=== PATIENT | female | born 1960 | race Caucasian/White ===

== ENCOUNTER → 2017-01-29 | Outpatient (CLI) | payer BC ==
[~2017-01-29] MED LIST: AMOX500C3 PO; CALC600T9 PO; DOXY100C76 PO; FEXO1TAB49 PO; GLUC1TAB44 PO; MELO7.5T5 PO; MULT-580 PO; MULTTAB58 PO; OMEGCAP2 PO; OMEP20TA14 PO; OXYC-57 PO; PROB1CAP54 PO; RIZA10TA18 PO; ZEAX5POW PO; ZEAXANTHIN
[2017-01-29 09:04] LABS: CHOLESTEROL/HDL RATIO 2.2
== END | disposition home or self-care (01) ==
LOC: C.LAB 07:29
DX: Z13.220 Encounter for screening for lipoid disorders (principal)

== ENCOUNTER → 2017-02-03 | Outpatient (CLI) | payer BC | END | disposition home or self-care (01) | LOC: C.PATH 13:54 | PROVIDERS: ATTEND Obstetrics & Gynecology | DX: N95.0 Postmenopausal bleeding (principal); N85.8 Other specified noninflammatory disorders of uterus ==

== ENCOUNTER → 2017-02-28 | Outpatient (CLI) | payer BC ==
[~2017-02-28] MED LIST changes: -AMOX500C3 PO; -MELO7.5T5 PO; -OMEGCAP2 PO; -OXYC-57 PO; -ZEAXANTHIN
--- NOTE | 2017-02-28 13:29 | MAMMOGRAPHY REPORT ---
ULTRASOUND OF BOTH BREASTS: 02/28/2017 CLINICAL HISTORY: 56-year-old woman presents for follow-up of probable complicated cysts identified i n the 12:00 and 1:00 axes of the right breast on previous ultrasound. Patient in this early presente d with bilateral palpable lumps in the 12:00 right breast and 3 lumps in the left breast which she st ill feels today. COMPARISON: Comparison is made to exams dated: 08/24/2016 ultrasound, 08/24/2016 mammogram, 6 ultrasound, 12/14/2015 mammogram, 07/21/2015 ultrasound, and 07/21/2015 mammogram - [facility]. FINDINGS: Targeted ultrasound was performed in both breasts with particular attention to a palpable lump in the 1:00 right breast, 12:00, 1:00 and 5:00 left breast. In the 1:00 right breast, 2 cm from the nipple in an area of palpable concern there is a rounded circumscribed mixed anechoic and hypoec hoic cystic-appearing mass measuring 5.6 x 5.1 x 6.3 mm. When comparing to the prior ultrasound this cystic appearing mass appears the same size visually, and it previously measured 5.4 x 4.6 x 6.3 mm. In the 12:00 right breast, 2 cm from the nipple, there is an oval parallel circumscribed mixed anec hoic and isoechoic cystic-appearing mass that measures 8.1 x 4.5 x 12.3 mm, previously measured 8.0 x 4.4 x 10.7 mm, and is also considered stable. Within the left 12:00 periareolar breast in an area o f palpable lump pointed out by the patient, there is a round anechoic benign simple cyst measuring 3. 5 x 2.7 x 4.9 mm. 2 abutting cysts versus a bilobed anechoic simple cyst in the 1:00 left breast, 4 cm from the nipple, measuring 8.8 x 3.8 x 7.0 mm in conglomerate, and another round nearly anechoic b enign simple cyst in an area of palpable concern in the 5:00 left breast, 2 cm from the nipple, measu ring 3.7 x 2.6 x 3.5 mm. This has decreased in size since the prior ultrasound. No suspicious solid mass is identified bilaterally. A few other scattered smaller anechoic benign cysts are seen in the left breast in real-time scanning. When compared to more remote ultrasounds including the 12/14/2015 and 07/21/2015 exams, nearly all of the simple cyst in the left breast are stable. A probable complicated cyst in the 2:30 to 3:00 axis is not currently identified. IMPRESSION: ACR-BI-RADS CATEGORY 3: PROBABLY BENIGN - FOLLOW-UP RECOMMENDED 1. There are multiple cystic-appearing masses scattered in both breasts on ultrasound, most compatib le with benign fibrocystic changes. 2 probable complicated cysts located in the 12:00 and 1:00 axes of the right breast are unchanged in size and appearance comparing to the 08/24/2016 ultrasound, and are most likely benign. However, given the complicated nature, another six-month short interval foll ow-up targeted ultrasound is recommended to ensure longer stability. Annual bilateral screening mamm ography will also be due at that time. 2. Many of the patient's palpable lumps correlate with simple cysts, with the exception of the mildl y complicated cyst in the 1:00 right breast. Continued clinical follow-up is also recommended. These results and recommendations were discussed with the patient at the time of the exam. Silke Linder M.D. ay/:02/28/2017 10:00:23 Cataract Lens Generator: Mago MENEZES)(Edson), [facility] letter sent: Follow Up Recommended 3 BI-RADS Code: ACR-BI-RADS Category 3: Probably Benign
== END | disposition home or self-care (01) ==
LOC: C.MAMM 07:50
PROVIDERS: ATTEND Obstetrics & Gynecology
DX: N63 Unspecified lump in breast (principal)

== ENCOUNTER 2017-03-03 09:31 | Day surgery (SDC) | payer BC ==
[2017-02-15 09:41] VITALS: BMI 21.0
[2017-03-01 10:13] LABS: BASO % 0.2 %; BASO ABS # 0.01 K/uL (0-0.2); COMPLETE YES; EOS % 3.8 %; HEMATOCRIT 40.6 % (37-47); LYMPH % 42.7 %; LYMPH ABS # 2.39 K/uL (1.2-3.4); MEAN CELL VOLUME 94.4 fL (80-100); MEAN CORPUSCULAR HEMOGLOBIN 32.6 pg (25-34); MEAN CORPUSCULAR HGB CONC 34.5 g/dl (32-36); MEAN PLATELET VOLUME 10.7 fL (7.4-10.4); MONO % 8.6 %; NEUT % 44.7 %; PLATELET COUNT 173 K/uL (130-400)
[~2017-03-03] VITALS: Ht 162.6 cm; Wt 56.8 kg
[~2017-03-03 09:31] MED LIST changes: -DOXY100C76 PO; +LACTATED RINGER'S 1000ML 1,000 ML IV SCH
[2017-03-03] MEDS ORDERED: DOXY100C76 PO (09:51)
[2017-03-03 09:54] VITALS: BP 115/77; PULSE 55; TEMP 36.9; O2SAT 97; BMI 21.0
[2017-03-03 10:11] VITALS: BP 115/77; TEMP 36.9; O2SAT 97; Ht 162.6 cm; Wt 56.8 kg
[2017-03-03] MEDS ORDERED: MIDAZOLAM HCL 1 MG/ML 2ML VIAL ONE (11:26)
[2017-03-03] MEDS ORDERED: FENTANYL CITRATE INJ 50 MCG/1 ML 2 ML VIAL ONE ×2 (11:26→12:42)
[2017-03-03] MEDS ORDERED: DEXAMETHASONE SOD INJ 4 MG/ML VIAL ONE (11:27)
[2017-03-03] MEDS ORDERED: PROPOFOL IV EMULSION 10 MG/ML 20 ML VIAL IV ONE (11:27)
[2017-03-03] MEDS ORDERED: ONDANSETRON INJ 2 MG/ML 2 ML VIAL ONE (11:27)
[2017-03-03] MEDS ORDERED: LIDOCAINE HCL 2% 2 ML VIAL (20MG/ML) ONE (11:27)
--- NOTE | 2017-03-03 11:35 | History & Physical Bridge Note ---
H&P Re-Evaluation Bridge Note: I have examined the patient, reviewed the History & Physical and in the interval since the performance of the History & Physical I have noted the following changes of clinical significance: No changes noted
[2017-03-03] MEDS ORDERED: KETOROLAC TROMETHAMINE 30 MG/ML VIAL ONE (12:23)
[2017-03-03] MEDS ORDERED: SILVER NITR/POTASSIUM NITRATE 10 APPLICATOR PACK ONE (12:47)
[2017-03-03] MEDS ORDERED: SODIUM CHLORIDE 0.9% 1000ML 1,000 ML IV SCH (13:03)
--- NOTE | 2017-03-03 13:03 | [facility] Operative Report ---
Operative Report Operative Date Mar 03, 2017. Pre-Operative Diagnosis Postmenopausal bleeding, Abnormal u/s findings. h/o uterine fibroids Post-Operative Diagnosis same, endometrial polyp Procedure(s) Performed 1. Dilatation and curettage 2. Hysteroscopy 3. Endometrial polypectomy Surgeon Tony Respooler Surgeon(s) none Estimated Blood Loss 0 cc Findings Uterus extremely retroverted. Sounds to about 7 cm. Cervix at internal os very tight. Normal right tubal ostia seen and polyp emanating from the left tubal ostia area obscuring the ostia noted. Right mid body anteriorly partially submucosal fibroid suspected. Attempts made to use myosure however myosure hysteroscope was difficult to insert. This was mostly attempted to consider shaving fibroid. Hysteroscopic saline fluid deficit suspected to be 300 cc. Of note during the transition from 1 hysteroscope to the next the fluid became dislodged from the hysteroscope with estimated spell on the floor. After polypectomy uterus with a smooth cavity left tubal ostia now seen small indent the suspected partially submucosal fibroid still seen. Fluids 700 Specimens Endometrial curettings and polyp Drains none Anesthesia Gen. Complication(s) None Disposition Recovery Room / PACU Indications 56-year-old with postmenopausal bleeding with ultrasound finding suspicious for lesion and saline hysterosonography also suspicious for possible polyp. Office endometrial biopsy benign. Recommendation for hysteroscopy and removal of polyp. Patient agreed. Description of Procedure Patient taken to the operating room and identified. After adequate general anesthesia was obtained she was placed in the dorsal lithotomy position and prepped and draped in the usual sterile fashion. Attention was turned to the patient's vagina where the bladder was drained for clear yellow urine. Weighted speculum and anterior retractor were placed to visualize the cervix which was grasped on its anterior lip using an Allis clamp at first. The cervix was sequentially dilated using Ema dilators to 23. A diagnostic hysteroscope primed with saline media was gently placed into the cervical os into the uterine cavity and the cavity was inspected with the findings as noted above. The angle of the camera was quite steep. Given the suspected slightly submucosal fibroid I attempted to use the mild sure hysteroscope that even with further dilation it was difficult to introduce I suspect due to the steep retroversion of the uterus and the tight internal os. For this reason instead a polyp forcep as well as serrated curette were used to clear the uterus of its contents and all specimens were sent. It is significant to note that the remainder of the cavity was very bland-appearing. This included the lining that was overlying the slight indent of likely submucosal fibroid. The saline hysteroscopic fluid deficit was estimated as noted. A cavity was able to be well inspected with normal distention and no evidence of remaining polyp. This point the procedure was terminated. Of note a tenaculum was later used to stabilize the cervix due to the difficult dilation and introduction of instruments and therefore slight bleeding at the cervix was cauterized with silver nitrate for excellent hemostasis. Patient was returned to the supine position she was awoken from her anesthesia and transported to the recovery room in stable condition. All sponge lap and needle counts were correct 2. I attest to the content of the Intraoperative Record and any orders documented therein. Any exceptions are noted below.
--- NOTE | 2017-03-03 13:07 | Discharge Instructions ---
Discharge Instructions Date of Service Mar 03, 2017. Admission Reason for Admission: Post Menopausal Bleeding Discharge Discharge Diagnosis / Problem: after surgery Discharge Goals Goal(s): Routine recovery after surgery Activity Recommendations Activity Limitations: as noted below . Instructions / Follow-Up Instructions / Follow-Up ACTIVITY RECOMMENDATIONS: * Avoid tampons, douching, hot tubs, pools, and intercourse until bleeding has stopped. * May shower as usual. * No strenuous activity for 24-48 hours. After 24-48 hours, you may do anything you feel like doing (driving and sports are okay). SPECIAL CARE INSTRUCTIONS: Special Diet: * Mild nausea may occur in the immediate post-operative period. * Take clear liquids such as tea, cola or bouillon until all nausea has subsided; you may then resume your normal diet. Special Care: * Light bleeding and vaginal spotting can last from a few days to 3-4 weeks. Call your doctor if bleeding becomes heavier than the heaviest part of your period. * Check your temperature twice a day for one week. If it goes above 100.4 degrees Fahrenheit (38.0 Celsius), notify your doctor. * Call your doctor's office for an appointment for 2-4 weeks after your surgery. FOLLOW-UP VISIT: Call your doctor's office for an appointment for 2-4 weeks after your surgery. Current Hospital Diet Patient's current hospital diet: Discharge Diet Recommended Diet: Regular Diet Procedures Procedures Performed: Dilatation and currettage, hysteroscopy, polypectomy. Pending Studies Studies pending at discharge: yes List of pending studies: pathology Laboratory Results Lipid Panel Test 01/29/17 07:50 Range/Units Triglycerides Level 56 0-150 mg/dl Cholesterol Level 184 0-200 mg/dl HDL Cholesterol 83 mg/dl Cholesterol/HDL Ratio 2.2 LDL Cholesterol, Calculated 90 mg/dl Medical Emergencies . Who to Call and When: Medical Emergencies: If at any time you feel your situation is an emergency, please call 911 immediately. . Non-Emergent Contact Non-Emergency issues call your: Care Transitions Nurse . . "Provider Documentation" section prepared by Florina Jimenez. . VTE Core Measure Inpt VTE Proph given/why not?: Treatment not indicated
[2017-03-03] MEDS ORDERED: HYDROmorphone INJ 1 MG/ML SYR IV PRN (13:15)
[2017-03-03] MEDS ORDERED: ATROPINE SULFATE 0.1 MG/ML 5ML SYR IV PRN (13:15)
[2017-03-03] MEDS ORDERED: EpHEDrine SULFATE INJ 50 MG/ML AMP IV PRN (13:15)
[2017-03-03] MEDS ORDERED: IBUPROFEN 600 MG TAB PO PRN (13:15)
[2017-03-03] MEDS ORDERED: KETOROLAC TROMETHAMINE 30 MG/ML VIAL IV. PRN (13:15)
[2017-03-03] MEDS ORDERED: ONDANSETRON INJ 2 MG/ML 2 ML VIAL IV PRN ×2 (13:15)
[2017-03-03] MEDS ORDERED: MEPERIDINE HCL 25 MG/ML CARP IV PRN (13:15)
[2017-03-03] MEDS ORDERED: OXYCODONE/ACETAMINOPHEN 5-325 TAB PO PRN ×2 (13:15)
[2017-03-03] MEDS ORDERED: LABETALOL HCL IV 5 MG/ML 20ML IV PRN (13:15)
[2017-03-03] MEDS ORDERED: FENTANYL CITRATE INJ 50 MCG/1 ML 2 ML VIAL IV PRN (13:15)
[2017-03-03 13:45] VITALS: BP 110/75; PULSE 56; TEMP 36.6; O2SAT 97
[2017-03-03 14:15] VITALS: BP 112/67; PULSE 60; TEMP 36.6; O2SAT 98
[2017-03-03 14:45] VITALS: BP 115/60; PULSE 58; TEMP 36.6; O2SAT 99
--- NOTE | 2017-03-03 15:13 | Anesthesiology Progress Note ---
Anesthesia Post Op Note Date & Time Mar 03, 2017 at 15:13 Vital Signs Pain Intensity: 0 Vital Signs Past 12 Hours Date Time Temp Pulse Resp B/P (MAP) Pulse Ox O2 Delivery O2 Flow Rate FiO2 03/03/17 14:45 36.6 58 18 115/60 99 Room Air 03/03/17 14:15 36.6 60 18 112/67 98 Room Air 03/03/17 13:45 36.6 56 18 110/75 97 Room Air 03/03/17 13:35 36.6 59 18 120/79 99 Room Air 03/03/17 13:25 54 16 127/73 100 Room Air 03/03/17 13:15 55 20 119/79 100 Mask 10 03/03/17 13:05 50 9 100/62 (70) 100 Mask 10 03/03/17 12:59 36.5 49 8 90/58 (63) 99 Mask 10 03/03/17 10:11 36.9 16 115/77 (90) 97 Room Air 03/03/17 09:54 36.9 55 16 115/77 (90) 97 Room Air Notes Mental Status: alert / awake / arousable, participated in evaluation Pt Amnestic to Procedure: Yes Nausea / Vomiting: adequately controlled Pain: adequately controlled Airway Patency, RR, SpO2: stable & adequate BP & HR: stable & adequate Hydration State: stable & adequate Anesthetic Complications: no major complications apparent
== END 2017-03-03 14:52 | disposition home or self-care (01) ==
LOC: C.ACU 09:31
PROVIDERS: ATTEND Obstetrics & Gynecology
DX: N95.0 Postmenopausal bleeding (principal); R93.5 Abnormal findings on diagnostic imaging of other abdominal regions, including retroperitoneum; N84.0 Polyp of corpus uteri; J45.909 Unspecified asthma, uncomplicated; Z98.890 Other specified postprocedural states; Z79.899 Other long term (current) drug therapy; Z68.21 Body mass index [BMI] 21.0-21.9, adult; Z80.3 Family history of malignant neoplasm of breast; Z80.49 Family history of malignant neoplasm of other genital organs

== ENCOUNTER 2017-08-04 05:35 | Observation (INO) | payer BC ==
[2017-07-20 14:14] VITALS: Ht 162.6 cm; Wt 57.0 kg
--- NOTE | 2017-07-20 14:51 | PAT Medication Instructions ---
Service Date Jul 20, 2017. Current Home Medication List Amoxicillin (Amoxil), Unknown Dose PO TID Calcium Carbonate-Vitamin D (Calcium + D), 1 TAB PO QAM Fexofenadine Hcl (Eri Allergy), 1 TAB PO QAM PRN for Seasonal Allergies Zwuwsqrolvg-Jbhwddmzuih-Evnwhn (Glucosamine Chondroitin J), 1 TAB PO HS Meloxicam (Mobic), Unknown Dose PO HS Multiple Vitamin (Multivitamin), 1 TAB PO HS Multiple Vitamins W/ Minerals (Hair/Skin/Nails), 1 TAB PO QAM Omeprazole Magnesium (Prilosec Otc), 20 MG PO QAM PRN for HEARTBURN Probiotic Product (Acidophilus), 1 CAP PO BID Rizatriptan Benzoate (Maxalt), 10 MG PO UD PRN for Migraine [Zeaxanthin (Bulk)], Unknown Dose Medication Instructions For Your Scheduled Surgery - Hold the following medications per surgeon's instructions: Meloxicam (Mobic), Unknown Dose PO HS - Hold the following medications 2 week prior to surgery: Tnkodjccksi-Pbqytrqjmlu-Uyudyq (Glucosamine Chondroitin J), 1 TAB PO HS - Hold the following medications 1 week prior to surgery: [Zeaxanthin (Bulk)], Unknown Dose (EYE VITAMIN) - Hold the following medications the morning of surgery: Calcium Carbonate-Vitamin D (Calcium + D), 1 TAB PO QAM Fexofenadine Hcl (Eri Allergy), 1 TAB PO QAM PRN for Seasonal Allergies Multiple Vitamins W/ Minerals (Hair/Skin/Nails), 1 TAB PO QAM Probiotic Product (Acidophilus), 1 CAP PO BID - Take the following medications the morning of surgery with a sip of water OTHERWISE NOTHING TO EAT OR DRINK AFTER MIDNIGHT: Rizatriptan Benzoate (Maxalt), 10 MG PO UD PRN for Migraine Omeprazole Magnesium (Prilosec Otc), 20 MG PO QAM PRN for HEARTBURN - Take the following medications as scheduled the night before surgery: Multiple Vitamin (Multivitamin), 1 TAB PO HS Rizatriptan Benzoate (Maxalt), 10 MG PO UD PRN for Migraine Probiotic Product (Acidophilus), 1 CAP PO BID If you have any questions please call us at [phone] or [phone] or [phone]
[2017-07-20 15:13] LABS: BASO % 0.3 %; BASO ABS # 0.02 K/uL (0-0.2); COMPLETE YES; EOS % 5.3 %; HEMATOCRIT 40.2 % (37-47); IG% 0.1 %; LYMPH % 41.7 %; LYMPH ABS # 2.81 K/uL (1.2-3.4); MEAN CELL VOLUME 94.4 fL (80-100); MEAN CORPUSCULAR HEMOGLOBIN 31.5 pg (25-34); MEAN CORPUSCULAR HGB CONC 33.3 g/dl (32-36); MEAN PLATELET VOLUME 10.5 fL (7.4-10.4); MONO % 5.5 %; NEUT % 47.1 %; PLATELET COUNT 183 K/uL (130-400); RED BLOOD COUNT 4.26 M/uL (4.2-5.4); WHITE BLOOD COUNT 6.74 K/uL (4.8-10.8)
[2017-08-04] VITALS (7 sets, daily range): BP systolic 93–118; BP diastolic 47–76; PULSE 52–68; TEMP 36.4–36.8; O2SAT 97–100
[~2017-08-04] VITALS: Ht 162.6 cm; Wt 57.0 kg
[~2017-08-04 05:35] MED LIST changes: +AMOX500C3 PO; -LACTATED RINGER'S 1000ML 1,000 ML IV SCH; +MELO7.5T5 PO; -ZEAX5POW PO; +ZEAXANTHIN
[2017-08-04] MEDS ORDERED: LACTATED RINGER'S 1000ML 1,000 ML IV SCH ×3 (06:00→09:57)
[2017-08-04] MEDS ORDERED: CEFAZOLIN 2000MG IV PUSH 10 ML IV SCH (06:00)
[2017-08-04] MEDS ORDERED: PROPOFOL IV EMULSION 10 MG/ML 20 ML VIAL IV ONE (06:49)
[2017-08-04] MEDS ORDERED: DEXAMETHASONE SOD INJ 4 MG/ML VIAL ONE (06:49)
[2017-08-04] MEDS ORDERED: LIDOCAINE HCL 2% 2 ML VIAL (20MG/ML) ONE (06:49)
[2017-08-04] MEDS ORDERED: FENTANYL CITRATE INJ 50 MCG/1 ML 2 ML VIAL ONE ×2 (06:49→09:27)
[2017-08-04] MEDS ORDERED: ONDANSETRON INJ 2 MG/ML 2 ML VIAL ONE ×2 (06:49→09:27)
[2017-08-04] MEDS ORDERED: MIDAZOLAM HCL 1 MG/ML 2ML VIAL ONE (06:50)
[2017-08-04] MEDS ORDERED: HYDROmorphone INJ 2 MG/ML SYR/VIAL ONE (06:50)
[2017-08-04] MEDS ORDERED: METHYLENE BLUE 0.5% 10 ML VIAL ONE (07:03)
[2017-08-04] MEDS ORDERED: BUPIVACAINE 0.5 % 5 MG/1 ML MPF 30ML VIAL ONE (07:03)
[2017-08-04] MEDS ORDERED: ATROPINE SULFATE 0.1 MG/ML 5ML SYR IV PRN (09:00)
[2017-08-04] MEDS ORDERED: LABETALOL HCL IV 5 MG/ML 20ML IV PRN (09:00)
[2017-08-04] MEDS ORDERED: ONDANSETRON INJ 2 MG/ML 2 ML VIAL IV PRN ×2 (09:00→10:00)
[2017-08-04] MEDS ORDERED: FENTANYL CITRATE INJ 50 MCG/1 ML 2 ML VIAL IV PRN (09:00)
[2017-08-04] MEDS ORDERED: EpHEDrine SULFATE INJ 50 MG/ML AMP IV PRN (09:00)
[2017-08-04] MEDS ORDERED: HYDROmorphone INJ 1 MG/ML SYR IV PRN (09:00)
[2017-08-04] MEDS ORDERED: MEPERIDINE HCL 25 MG/ML CARP IV PRN (09:00)
[2017-08-04] MEDS ORDERED: GLYCOPYRROLATE INJ 0.2 MG/ML VIAL ONE (09:27)
[2017-08-04] MEDS ORDERED: KETOROLAC TROMETHAMINE 30 MG/ML VIAL ONE (09:27)
[2017-08-04] MEDS ORDERED: ROCURONIUM BROMIDE 10 MG/ML 5 ML VIAL IV ONE (09:27)
[2017-08-04] MEDS ORDERED: NEOSTIGMINE METHYLSULFATE 5 MG/5 ML SYR ONE (09:27)
[2017-08-04] MEDS ORDERED: NALOXONE HCL 0.4 MG/1 ML VIAL/CARP ONE (09:51)
--- NOTE | 2017-08-04 09:57 | [facility] Operative Report ---
Operative Report Operative Date Aug 04, 2017. Pre-Operative Diagnosis 1.Postmenopausal bleeding 2. Submucous leiomyoma of uterus Post-Operative Diagnosis 1.Postmenopausal bleeding 2. Submucous leiomyoma of uterus Procedure(s) Performed Total Laparoscopic Hysterectomy, bilateral salpingectomies, cystoscopy, robotic assistance Surgeon Dr. Florina Jimenez Dynamic Etching Processor Surgeon(s) Dr. Isha Whitt Estimated Blood Loss 50 mL Findings uterus difficult to gain entry with vcare device, presumably due to submucosal fibroid. uterus size top normal. subserosal fibroids noted small x 2 on posterior wall. atrophic ovaries bilaterally. normal fallopian tubes. Normal liver edge and gallbladder. Cystoscopy findings with normal bladder filling, normal dome and normal bilateral ureteral jets. Fluids 1000 Specimens Permanent specimens A: Uterus, cervix, and bilateral fallopian tubes Drains brooks Anesthesia general Complication(s) None Disposition Recovery Room / PACU Indications 57-year-old with a history of persistent postmenopausal bleeding despite prior D &C hysteroscopy and resection of submucosal fibroid. Due to the persistence of the bleeding decision was made to proceed with definitive hysterectomy. Description of Procedure Patient taken to the operating room and identified. After adequate general anesthesia was obtained she was placed in the dorsolithotomy position and prepped and draped in the usual sterile fashion. Attention was turned to the patient's vagina where a Brooks catheter was placed in the usual fashion. A weighted speculum and anterior retractor were used to visualize the cervix which was grasped on its anterior lip with an Allis clamp. A suture of 0 Vicryl in interrupted fashion was placed at the 3 o'clock position. The medium V care cup was seemingly too large and therefore the small V care cup was obtained. The cervix was attempted to be dilated however this was difficult. For that reason the decision was made to gain entry abdominally in order to watch laparoscopically during dilation and placement of the V care cup. Attention was then returned to the abdomen. A knife was used to create create a infra umbilical skin incision. The Veress needle was placed intraperitoneally with an opening pressure of 3 mmHg. A CO2 pneumoperitoneum was created. The 12 mm trocar was placed under direct visualization using the optical trocar device. Patient was placed in Trendelenburg. A left da Lor trocar site was created by first creating skin incision and then racing under direct visualization a da Lor trocar. The bowel was teased away from the pelvis using a blunt probe. The surgeon returned to the vagina where the weighted speculum was replaced. The Allis clamp was replaced on the cervix for traction. The cervix was then sequentially dilated with direct visualization via the laparoscope. The V care manipulator was gently placed through the cervical os into the uterine cavity and the balloon was inflated. The cup was then tied down. The blue stabilizing cup was unable to be passed through a very narrow introitus and therefore was left outside of the introitus and stabilized. Attention was returned to the abdomen. A right da Lor trocar site was then placed under direct visualization after creating a skin incision. The laparoscope was then removed. The da Lor robot was brought to the patient's bedside. The appropriate instrument arms were attached to the appropriate trocars. The camera was introduced. The monopolar bronwyn was brought through instrument arm #1 and the bipolar cautery was brought through instrument arm #2. The surgeon then went to the console. The ureters were seen coursing well below the planned operative sites. The uterus was manipulated to reveal the right infundibulopelvic ligament , fallopian tube, round ligament complex. The fallopian tube was dissected away from it mesosalpinx. The utero-ovarian ligament and round ligament complex was sequentially coagulated and then transected. The anterior and posterior leaves of the broad ligament were also dissected. The bladder was pushed well away from the planned operative sites. The uterine artery pedicle was cauterized on the right side. Attention was then turned to the left fallopian tube and utero- ovarian ligament, round ligament complex. The fallopian tube again was from the mesosalpinx and the utero-ovarian ligament and round ligament complexes were coagulated and transected. The anterior and posterior leaves of the broad ligament were opened up into creating a bladder flap completely anteriorly and pushing the bladder well away from from the planned operative site. The uterine artery pedicles were both coagulated and transected on the left side. The cardinal ligament attachments were further coagulated and transected once the bladder was cleared well away from the planned operative site. This required some pressure on the V care cup. Attention was returned to the right uterine artery pedicle was which was then re-coagulated and transected as well as the cardinal ligament attachments. Then colpotomy site was completely freed and then was entered into using the monopolar bronwyn. The cervix was carved away from the vagina in circumferential fashion. The specimen was brought out through the vagina. A sponge was placed in the vagina to maintain pneumoperitoneum. The 2-0 V LOC 90 suture was passed vaginally. The #1 instrument arm was exchanged with a large needle delivery route driver. The cuff was closed in a running fashion in the usual fashion using the V LOC 90 suture material and back stitches were placed. Small bleeding sites to the right of the cuff were cauterized. The suture material was cut and the needle was removed from the abdomen. The pelvis was irrigated with no evidence of active bleeding sites. Cystoscopy took place with the findings as noted above. The CO2 pneumoperitoneum was released and no active bleeding sites were noted. The procedure was terminated. The robot was undocked and moved away from the patient 's bedside. A new Brooks catheter had been placed. The CO2 gas was allowed to escape the patient's abdomen and the trocars removed. The infraumbilical trocar site fascia was reapproximated using 0 Vicryl in an interrupted fashion. All the sites were injected with Marcaine and then stitched in a subcuticular fashion using 4-0 Vicryl. They were dressed with Dermabond. The patient was returned to the supine position and awoken from her anesthesia and transported to the recovery room in stable condition. All sponge lap and needle counts were correct 2. I attest to the content of the Intraoperative Record and any orders documented therein. Any exceptions are noted below.
[2017-08-04] MEDS ORDERED: IBUPROFEN 600 MG TAB PO PRN (10:00)
[2017-08-04] MEDS ORDERED: OXYCODONE/ACETAMINOPHEN 5-325 TAB PO PRN ×2 (10:00)
[2017-08-04] MEDS ORDERED: ACETAMINOPHEN 325 MG TAB PO PRN (10:00)
[2017-08-04] MEDS ORDERED: KETOROLAC TROMETHAMINE 30 MG/ML VIAL IV. PRN (10:00)
--- NOTE | 2017-08-04 10:51 | Anesthesiology Progress Note ---
Anesthesia Post Op Note Date & Time Aug 04, 2017 at 10:50 Vital Signs Pain Intensity: 0 Vital Signs Past 12 Hours Date Time Temp Pulse Resp B/P (MAP) Pulse Ox O2 Delivery O2 Flow Rate FiO2 08/04/17 10:30 36.3 54 16 97/63 (75) 99 Nasal Cannula 2 08/04/17 10:20 60 14 98/64 (74) 98 Nasal Cannula 2 08/04/17 10:10 65 20 96/70 (78) 99 Oxymask 10 Mask 08/04/17 10:00 65 20 119/76 99 Mask 10 08/04/17 09:50 49 19 95/64 (76) 98 Mask 15 08/04/17 09:43 36.3 63 26 110/69 99 Oxymask 10 08/04/17 06:27 36.8 58 18 118/76 (90) 98 Room Air Notes Mental Status: alert / awake / arousable, participated in evaluation Pt Amnestic to Procedure: Yes Nausea / Vomiting: adequately controlled Pain: adequately controlled Airway Patency, RR, SpO2: stable & adequate BP & HR: stable & adequate Hydration State: stable & adequate Anesthetic Complications: no major complications apparent
[2017-08-04] MEDS ORDERED: IV FLUIDS COMPLETED PRN (12:00)
[2017-08-04] MEDS ORDERED: OXYC-57 PO (14:46)
--- NOTE | 2017-08-04 14:48 | Discharge Instructions ---
Discharge Instructions Date of Service Aug 04, 2017. Admission Reason for Admission: Post Menopausal Bleeding Discharge Discharge Diagnosis / Problem: after surgery Discharge Goals Goal(s): Routine recovery after surgery Activity Recommendations Activity Limitations: as noted below . Instructions / Follow-Up Instructions / Follow-Up POST OPERATIVE: BOWEL FUNCTION/MEDICATIONS: 1. Constipation pain and discomfort are the most common complaints 5-7 days after surgery. Points 2-6 address the things that can help. 2. Chewing gum can help stimulate the gut and help improve digestion and motility. 3. Milk of Magnesia 1-2 times per day until return of bowel function. 4. Colace is a stool softener that helps. Taking this 2-3 times per day until bowel function returns to normal is highly recommended. Can take 100mg at a time. 5. Dulcolax is a laxative that may be used if several days have passed without a bowel movement. Alternatively Miralax may be used daily instead. 6. Drink plenty of fluids as this will also reduce constipation. 7. Narcotic pain medications will be prescribed by your physician. They are safe to use and we encourage you to use them. If you are not allergic, ibuprofen will also be prescribed. Many patients will be able to transition off of the narcotic medications to ibuprofen by postoperative day 3. ACTIVITY RECOMMENDATIONS: 1. Get plenty of rest and listen to your body. If you are tired, take a nap. 2. You may shower, but do not take a tub bath until you see your doctor at the 2 week post operative visit. 3. Absolutely NO intercourse and nothing in the vagina until you are examined by your doctor at the 8 week visit. At that visit it will be determined when such activities can be resumed. This can range from 6-12 weeks after your surgery depending on healing time. 4. The main physical activity in the first week should be walking. By the second week you can slowly increase activity. There are no limits on walking up and down stairs. 5. Do not lift more than 5-10 lbs for 4 weeks. Remember the "one-handed rule", i.e. if you can lift something with only one hand it's likely okay. 6. 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 "Overdoing it" can lead to incisions not healing, pain and vaginal bleeding , so again, listen to your body. 7. Driving can be resumed when you feel able. Do not drive within 24 hours of taking a narcotic medication. EXPECTATIONS: 1. Vaginal spotting, bleeding and discharge are common after surgery. There may even be an odor to the discharge which is often related to sutures used in the vagina. If you experience heavy vaginal bleeding, call the office number day or night [phone]. 2. Bladder discomfort is common after surgery from the catheter. This usually resolves in 1-2 weeks. 3. By the end of the 3rd or 4th week you should be feeling much better. It may take up to 6 weeks for your energy levels to return to normal. 4. Narcotic medications have side effects such as: dizziness, headache, nausea and/or vomiting. If you suspect your pain medication is causing problems, call our office and we may be able to prescribe an alternate medication. 5. The skin incisions are often covered with a liquid bandage. This will gradually peel off over time. CALL THE OFFICE IF YOU HAVE ANY OF THE FOLLOWIN. Temperature of 101 degrees or higher. 2. Severe abdominal or pelvic pain not relieved by pain medication. 3. Persistent nausea or vomiting. 4. Increased pain with urination or difficulty urinating. 5. Bright red bleeding that soaks more than 1 pad per hour. CONTACT PHONE NUMBERS: Main Office: [phone] Surgical Nurse: [phone] extension [phone] FOLLOW-UP: Post-Operative Appointments: * Individual instructions will have been given about the timing of your first examination, but this is usually at the end of the second week home. * You will need to call the office at soon after discharge to make the appointment for your post-op check-up if it has not already been scheduled. * Additional information regarding activity, sexual intercourse and when to return to work will be given at this appointment. WE WISH YOU A SPEEDY RECOVERY! Current Hospital Diet Patient's current hospital diet: Regular Diet Discharge Diet Recommended Diet: Regular Diet Procedures Procedures Performed: Total Laparoscopic Hysterectomy, bilateral salpingectomies, cystoscopy, robotic assistance Pending Studies Studies pending at discharge: yes List of pending studies: pathology report Medical Emergencies . Who to Call and When: Medical Emergencies: If at any time you feel your situation is an emergency, please call 911 immediately. . Non-Emergent Contact Non-Emergency issues call your: Silk Screen Operator . . "Provider Documentation" section prepared by Florina Jimenez. . VTE Core Measure Inpt VTE Proph given/why not?: SCD's [place] Drug Monitoring Program Search Results: patient reviewed within database, no issues identified
--- NOTE | 2017-08-04 18:37 | Discharge Summary ---
Discharge Summary Date of Service Aug 04, 2017. Date of discharge: 08/04/17 Discharge Summary Admission diagnoses: postmenopausal bleeding, submucosal fibroids Discharge diagnoses: same Procedures: Total Laparoscopic Hysterectomy, Bilateral salpingectomies, cystoscopy, robotic assistance Brief History and Hospital Course: 57yo with history of persistent postmenopausal bleeding with recent D&C/HSC with finding of submucosal fibroid. After surgery patient persisted to have abnormal postmenopausal bleeding and after discussion of options desired definitive hysterectomy. She underwent above stated procedures without incident. Estimated blood loss was 50cc. Her postoperative recovery and course was uncomplicated. She was able to tolerate a regular diet, void and ambulate without problems and had good pain control with oral medications and was able to go home on the same evening of her surgery. She was given discharge instructions both verbally and written. She was advised to followup in office in about 2 weeks. She was given pain medication prescription.
== END 2017-08-04 17:50 | disposition home or self-care (01) ==
LOC: C.ACU 05:35 → C.MS4N 10:00 → ENRESERV 10:47
PROVIDERS: ADMIT Obstetrics & Gynecology; ATTEND Obstetrics & Gynecology
DX: N95.0 Postmenopausal bleeding (principal); D25.0 Submucous leiomyoma of uterus; N80.0 Endometriosis of uterus; N88.8 Other specified noninflammatory disorders of cervix uteri; K21.9 Gastro-esophageal reflux disease without esophagitis
CPT/HCPCS: 58571; S2900

== ENCOUNTER → 2017-08-22 | Outpatient (CLI) | payer BC ==
[~2017-08-22] MED LIST changes: +OXYC-57 PO
--- NOTE | 2017-08-22 13:08 | MAMMOGRAPHY REPORT ---
BILATERAL DIGITAL DIAGNOSTIC MAMMOGRAM TOMOSYNTHESIS WITH CAD AND TARGETED RIGHT ULTRASOUND: 08/22/20 CLINICAL HISTORY: 57-year-old woman presents at time of annual bilateral mammography and also close f ollow-up of hypoechoic benign-appearing mass is identified in the 12:00 and 1:00 right breast on ultr asound. History of bilateral breast implants. TECHNIQUE: Bilateral CC and MLO views of the breasts with and without implant displacement views wer e obtained. Tomosynthesis was also performed on the implant displaced views. Current study was also evaluated with a Computer Aided Detection (CAD) system. COMPARISON: Comparison is made to exams dated: 02/28/2017 ultrasound, 08/24/2016 ultrasound, 6 ultrasound, 12/14/2015 mammogram, 07/21/2015 ultrasound, and 07/21/2015 mammogram - [facility]. BREAST COMPOSITION: The tissue of both breasts is heterogeneously dense, which may obscure small mas ses. FINDINGS: Bilateral subpectoral silicone implants are stable comparing to prior exams. The glandular pattern is similar to prior mammograms and there are scattered benign rim calcifications and punctat e microcalcifications in both breasts. No obvious new spiculated or irregular mass, focal area of ar chitectural distortion, cluster of microcalcifications or focal skin thickening is identified. Repeat targeted ultrasound was performed in the right 12:00 and 1:00 axes. In the 1:00 right breast, 2 cm from the nipple, there is a round circumscribed hypoechoic and anechoic cystic appearing mass m easuring 6.2 x 4.5 x 6.2 mm. This has not significantly changed comparing back to the 08/24/2016 ult rasound at which time it measured 5.4 x 4.6 x 6.3 mm. In the 12:00 right breast, 2 cm from the nippl e there is an oval circumscribed hypoechoic and isoechoic parallel oriented mass measuring 8.2 x 4.4 x 11.5 mm, previously 8.0 x 4.4 x 10.7 mm. Although this does not appear significantly changed in si ze, there is a focal eccentric area along the superficial aspect of the mass that is less well-circum scribed and has the appearance of a possible intraductal cystic mass extending beyond the wall of a c yst. Therefore this mass is indeterminate and definitive characterization with tissue sampling is re commended. IMPRESSION: ACR BI-RADS CATEGORY 4: SUSPICIOUS, TARGETED ULTRASOUND ACR BI-RADS CATEGORY 4: SUSPICIO US 1. Ultrasound-guided core biopsy is recommended for a predominantly circumscribed oval 11.5 mm mass in the 12:00 right breast, 2 cm from the nipple, with new focal eccentric thickening along the superf icial aspect of the mass, although the size of the mass is not significantly changed over the past ye ar. 2. Stable size and sonographic appearance of a benign-appearing possibly cystic mass in the 1:00 rig ht breast, 2 cm from the nipple, measuring 6 mm. 3. Stable mammographic appearance of the breasts. Pending benign pathology results from the right b reast ultrasound guided core biopsy, recommend bilateral diagnostic tomosynthesis mammography and rep eat targeted ultrasound in the right 1:00 axis in one year, to ensure 2 years of stability of the pos sible complicated cyst identified on ultrasound. These results and recommendations were discussed with the patient at the time of the exam. She tenta tively scheduled the right breast biopsy prior to leaving our department. Approximately 10% of breast cancers are not detected with mammography. A negative mammographic report should not delay biopsy if a clinically suggestive mass is present. Silke Linder M.D. ay/:08/22/2017 12:37:54 Trapeze Artist: Mago MENEZES)(Edson), [facility] letter sent: Abnormal 4/5 BI-RADS Code: ACR BI-RADS Category 4: Suspicious Ultrasound BI-RADS: ACR BI-RADS Category 4: Suspici ous
== END | disposition home or self-care (01) ==
LOC: C.MAMM 07:52
PROVIDERS: ATTEND Obstetrics & Gynecology
DX: N63.10 Unspecified lump in the right breast, unspecified quadrant (principal)

== ENCOUNTER → 2017-08-25 | Outpatient (CLI) | payer BC ==
--- NOTE | 2017-08-25 09:00 | Discharge Instructions ---
Discharge Instructions Procedure Procedure Date: Aug 25, 2017. Reason for visit: Right Mass. Discharge Discharge Date: Aug 25, 2017. Discharge Diagnosis: status post breast biopsy Instructions Activity Recommendations: Additional Limitations (see below) Return to School/Work: no limitations Recommended Home Diet: No Limitations Provider Instructions: ACTIVITY RECOMMENDATIONS: * No lifting, pushing, pulling or exercising the affected side for three days. RETURN TO SCHOOL/WORK: * You may return to work/school after the procedure, but do not perform any strenuous activities for 24 to 48 hours. MEDICATIONS: * Tylenol (two 325 mg) every four to six hours if needed for mild pain (if not allergic to Tylenol). DIET: * Resume previous diet. SPECIAL CARE INSTRUCTIONS: * Keep biopsy site dry for 24 hours. May shower after 24 hours, but do not soak (bathe) incision. * May remove Tegaderm (plastic patch) tomorrow AFTER showering. * Leave the steri-strips on for one week. Allow the steri-strips to fall off by themselves. If not off after one week, you may remove them. You may place a Bandaid crosswise over the strips, if desired. * Apply ice 10 minutes on and 10 minutes off as needed. * Wear a bra at bedtime to sleep more comfortably for 2-3 days. * Your referring physician should have the results after approximately 5 to 7 business days. * Call for unusual bleeding, fever, drainage, etc or if you have any questions call during normal business hours or after hours call Dr Senior, . FOLLOW UP VISIT: Follow-up with Referring Physician as scheduled. Allergies Coded Allergies: No Known Allergies (Unverified , 08/04/17) Rosalba Blank Recommendations: Call your doctor if: * Temperature above 101 degrees * Pain not relieved by pain medicine ordered * There is increased drainage or redness from any incision * You have any unanswered questions or concerns. Your Doctors Instructions noted above were prepared by provider Serena Senior. Patient Signature Section: Patient Instructions Signature Page Loli Kumari Patient (or Guardian) Signature/Date: I have read and understand the instructions given to me by my caregivers. Caregiver/RN/Doctor Signature/Date: The above-named patient and/or guardian has received patient instructions on this date. + Original Patient Signature Page (only) stays with chart. Please make copy for patient.
--- NOTE | 2017-08-25 15:32 | MAMMOGRAPHY REPORT ---
THIS REPORT HAS BEEN AMENDED. ULTRASOUND GUIDED BIOPSY RIGHT BREAST: 08/25/2017 CLINICAL HISTORY: Right 12:00 breast mass. PATIENT CONSENT: The procedure, risks and benefits were discussed with the patient and informed writt en consent was obtained. A timeout was performed immediately prior to the procedure. PROCEDURE DESCRIPTION: With ultrasound guidance, aseptic technique, and lidocaine as the local anesth etic (1% lidocaine to anesthetize the skin and 1% lidocaine with epinephrine to anesthetize the deepe r tissues), the mass of concern in the right 12:00 breast, 2 cm from the nipple, was sampled 4 times with a 14-gauge Achieve biopsy needle. Immediately thereafter, with ultrasound guidance, aseptic te chnique, and lidocaine as the local anesthetic, a metallic localizer clip was placed at the biopsy si te. Direct pressure was applied to the site immediately post procedure and hemostasis was achieved. Postprocedure unilateral mammograms were performed to confirm clip placement. The patient tolerate d the procedure without complication. She was given wound care instructions. The specimens were sent to pathology for analysis. COMPARISON: Comparison is made to exams dated: 08/22/2017 mammogram, 08/22/2017 ultrasound, 08/24/20 16 ultrasound, 02/28/2017 ultrasound, 08/24/2016 mammogram, and 07/06/2015 mammogram - [facility]. IMPRESSION: ULTRASOUND GUIDED BIOPSY Ultrasound guided core needle biopsy of the right 12:00 breast mass, with clip placement. The patien t will receive pathology results from her referring provider. Pending benign pathology results, tiffany mmend bilateral diagnostic tomosynthesis mammograms and repeat targeted ultrasound of the right breas t in one year to confirm stability of the right 1:00 breast mass. Serena Senior M.D. ah/:08/25/2017 09:02:26 Attending Technologist: Serena Senior MD, [facility] Cook Tortilla: Sarah Lopez, [facility] AMENDMENT: 09/06/2017 Serena Senior M.D. Pathology results from ultrasound-guided biopsy of the right 12:00 breast mass were reviewed on 018. The pathology shows a benign breast cyst with prominent cyst contents, and focal lactational ch danielle. Findings are benign and concordant with the imaging appearance. As recommended on the prior d iagnostic mammogram report, recommend bilateral diagnostic tomosynthesis mammograms and repeat target ed ultrasound of the right breast in one year to confirm stability of the right 1:00 breast mass.
--- NOTE | 2017-08-25 15:34 | MAMMOGRAPHY REPORT ---
UNILATERAL RIGHT DIGITAL DIAGNOSTIC MAMMOGRAM TOMOSYNTHESIS: 08/25/2017 CLINICAL HISTORY: Status post right breast biopsy. TECHNIQUE: Breast tomosynthesis in addition to standard 2D mammography was performed. Postprocedura l right CC and ML implant displaced tomosynthesis images including C views were obtained. COMPARISON: Comparison is made to exams dated: 08/22/2017 mammogram, 08/22/2017 ultrasound, 08/24/20 16 ultrasound, 08/24/2016 mammogram, and 12/14/2015 ultrasound - [facility]. BREAST COMPOSITION: The tissue of the right breast is heterogeneously dense, which may obscure small masses. FINDINGS: A new biopsy marker clip is seen in the expected location of the biopsied mass in the righ t 12:00 breast. No significant postbiopsy hematoma is seen. IMPRESSION: POST PROCEDURE IMAGING FOR MARKER PLACEMENT New biopsy marker clip status post ultrasound guided biopsy of the right 12:00 breast mass. Patholog y results are pending. Pending benign pathology results, recommend bilateral diagnostic tomosynthesi s mammography and repeat targeted ultrasound in the right 1:00 axis in one year. Approximately 10% of breast cancers are not detected with mammography. A negative mammographic report should not delay biopsy if a clinically suggestive mass is present. Serena Senior M.D. /:08/25/2017 09:11:23 Harbor Pilot: Sarah Lopez, [facility] BI-RADS Code: Post Procedure Imaging For Marker Placement
== END | disposition home or self-care (01) ==
LOC: C.MAMM 08:11
PROVIDERS: ATTEND Obstetrics & Gynecology
DX: N60.01 Solitary cyst of right breast (principal)